=== PATIENT | female | born 1980 | race Caucasian/White ===

== ENCOUNTER 2017-01-12 14:35 | Emergency (ER) | payer SELFPAY ==
[~2017-01-12 14:35] MED LIST: ANUSOL-HC25 MG/SUPP RC; COMBIVENT INH14.7 GM IH; FLEXERIL10 MG PO; HYCOTUSS EXPEC480 ML PO; HYDROCODONE; MOTRIN600 MG PO; NO MEDS; NORCO 5-325 TA1 EACH PO; VICODIN 5/500 T1 TAB PO; ZITHROMAX250MG Z-PAK PO
[2017-01-12 16:55] LABS: URINE BILIRUBIN SMALL (NEG); URINE BLOOD NEGATIVE (NEG); URINE GLUCOSE (UA) NEGATIVE (NEG); URINE KETONE NEGATIVE (NEG); URINE LEUKOCYTE ESTERASE POSITIVE (NEG); URINE NITRITE NEGATIVE (NEG); URINE PROTEIN NEGATIVE (NEG)
[2017-01-12 16:58] LABS: URINE APPEARANCE CLOUDY; URINE COLOR YELLOW
[2017-01-12 16:58] LABS: BASO ABSOLUTE COUNT 0.1 tho/cmm (0.0-0.2); EOS % 3.6 % (0-7); EOSINOPHIL ABSOLUTE COUNT 0.3 tho/cmm (0.0-0.7); HCT-HEMATOCRIT 43.1 % (34.0-49.0); HGB-HEMOGLOBIN 14.6 gm/dl (12.0-15.5); LYMPH % 45.8 % (20-45); LYMPH ABSOLUTE COUNT 3.8 tho/cmm (0.8-4.5); MCH (MEAN CORPUSCULAR HGB) 30.9 pg (28.0-32.0); MCHC MEAN CORPUSCULAR HGB CONC 33.9 % (32.0-36.0); MCV (MEAN CELL VOLUME) 91.1 fl (82.0-96.0); MEAN PLATELET VOLUME 9.7 cmc (9.4-12.4); MONO % 8.5 % (0-12); MONOCYTE ABSOLUTE COUNT 0.7 tho/cmm (0.0-1.2); NEUTROPHIL ABSOLUTE COUNT 3.4 tho/cmm (1.6-8.0); NEUTROPHIL-AUTOMATED 3.4 tho/cmm (1.6-8.0); NEUTROPHILS % 41.1 % (40-80); PLATELET COUNT 330 tho/cmm (150-450); RED BLOOD COUNT 4.73 mil/cmm (4.00-5.20); RED CELL DISTRIBUTION WIDTH 12.8 % (12.4-16.4); WHITE BLOOD COUNT 8.3 tho/cmm (4.0-10.0)
[2017-01-12 17:04] LABS: URINE AMORPHOUS 2+; URINE BACTERIA 1+; URINE MUCUS 1+; URINE RBC 0 /[HPF] (0-5)
[2017-01-12 17:11] LABS: ANION GAP 9 mmol/L (0-20); BLOOD UREA NITROGEN 11 mg/dl (6-24); CALCIUM 8.7 mg/dl (8.5-10.5); CARBON DIOXIDE-VENOUS 25 mmol/L (22-32); CHLORIDE 106 mmol/l (96-110); CREATININE 0.69 mg/dl (0.50-1.10); GLUCOSE 87 mg/dL (70-110); SODIUM 136 mmol/L (135-145); eGFR VALUE FOR BLACK >90 mL/Min
== END 2017-01-12 18:05 ==
LOC: EDMED 14:35
PROVIDERS: Emergency Medicine
DX: R51 Headache (principal); R20.2 Paresthesia of skin; F17.210 Nicotine dependence, cigarettes, uncomplicated; R11.0 Nausea
CPT/HCPCS: J0780; J1200; J7030